=== PATIENT | female | born 1945 | race Caucasian/White ===

== ENCOUNTER → 2018-03-28 | Outpatient (CLI) | payer OTHER ==
[~2018-03-28] MED LIST: AIRBORNE GUMMI1 EACH PO; B-12500 MC1 SL; COMPAZINE10 MG PO; DIAZEPAM2 MG PO; DOCU PO; FISH OIL + D31 EACH PO; IMODIUM MS REL1 EACH PO; LEVAQUIN750 MG PO; LOPRESSOR25 MG PO; MAGNESIUM250 MG PO; MEGACE40 MG PO; NOLVADEX20 MG PO; PHENERGAN-CODE120 ML PO; PNV DHA PO; SYNTHROID50 MCG PO; VIACTIV SOFT C1 EACH PO
[2018-03-30 19:12] LABS: Flow Clinical Information NOT PROVIDED (()); Flow Number of Markers 22 (()); Flow Spec Viability 46 % (())
== END | disposition home or self-care (01) ==
LOC: OPR 08:00 → RAD 08:39 → OPR 09:00 → EDSTATUS 09:00
PROVIDERS: Obstetrics & Gynecology Gynecologic Oncology
PROC: 07BH3ZX Excision of Right Inguinal Lymphatic, Percutaneous Approach, Diagnostic (ICD-10-PCS; principal; 2018-03-28)
DX: R59.9 Enlarged lymph nodes, unspecified (principal); C54.1 Malignant neoplasm of endometrium
CPT/HCPCS: 76942; 88305; 88341 TC; 88342 TC